=== PATIENT | male | born 1970 | race Caucasian/White ===

== ENCOUNTER → 2017-12-17 | Outpatient (CLI) | payer BC ==
--- NOTE | 2017-12-17 15:33 | XR ---
EXAMINATION TYPE: XR KUB DATE OF EXAM: 12/17/2017 COMPARISON: NONE HISTORY: Pain TECHNIQUE: One view abdominal series FINDINGS: The osseous structures are intact. The bowel gas pattern is nonspecific. Lung bases are clear. There is a 3 mm calcification overlying the lower pole right kidney. Within the pelvis there is a 3 mm calcification overlying the sacrum on the left. Arthropathy of the hips noted. Retained fecal debris throughout the right colon IMPRESSION: 1. Nonspecific abdomen. 2. 3 mm lower pole right renal calculus. 3. There is a left hemipelvic calcification below the SI joint measuring 3 mm which could potentially be in the course of the left ureter, correlate clinically.
== END | disposition home or self-care (01) ==
LOC: RADXRMAIN 14:36
PROVIDERS: ATTEND Urology
DX: N20.0 Calculus of kidney (principal)
CPT/HCPCS: 74018

== ENCOUNTER → 2017-12-26 | Outpatient (CLI) | payer BC ==
--- NOTE | 2017-12-27 09:37 | XR ---
EXAMINATION TYPE: XR KUB DATE OF EXAM: 12/26/2017 COMPARISON: 12/17/2017 HISTORY: Pain TECHNIQUE: One view abdominal series FINDINGS: Right kidney: There is a tiny 2 mm calcification overlying the lower pole the right kidney. Left kidney: No suspicious calcifications. Pelvis: There is a tiny 3 mm calcification in the left lower hemipelvis which appears to migrated sli ghtly from the prior exam and appears to be at the expected location of the UPJ. Bowel gas pattern nonspecific with extensive retained fecal debris. Curvature the spine with hypertro phic changes. IMPRESSION: 1. Suspect a 3 mm left UVJ calcification is migrated a few centimeters from the prior exam. 2. There is a 2 mm lower pole right renal calculus
== END | disposition home or self-care (01) ==
LOC: RADXRMAIN 17:50
PROVIDERS: ATTEND Urology
DX: N20.0 Calculus of kidney (principal)
CPT/HCPCS: 74018

== ENCOUNTER 2019-07-13 04:12 | Emergency (ER) | payer BC ==
[2019-07-13 04:18] VITALS: RESP 18
[2019-07-13] MEDS ORDERED: ONDANSETRON 4 MG/2 ML VIAL IVP STA (04:24)
[2019-07-13] MEDS ORDERED: KETOROLAC 30 MG/ML 1 ML VIAL IVP STA (04:24)
[2019-07-13] MEDS ORDERED: SODIUM CHLORIDE 0.9% 1,000 ML IV STA (04:24)
[2019-07-13 04:47] LABS: Appearance,Urine Clear (Clear); Bilirubin,Urine Negative (Negative); Blood,Urine Small (Negative); Calcium Oxalate Crystals,Urine Rare /hpf; Color,Urine Yellow; Glucose,Urine (UA) Negative (Negative); Ketones,Urine Negative (Negative); Leukocyte Esterase,Urine Trace (Negative); Mucus,Urine Moderate /hpf; Nitrite,Urine Negative (Negative); PH, Urine 5.5 (5.0-8.0); Protein,Urine 1+ (Negative); RBC,Urine 37 /hpf (0-5); Specific Gravity,Urine 1.031 (1.001-1.035); Squamous Epithelial Cell,Urine <1 /hpf (0-4); Urobilinogen,Urine <2.0 mg/dL (<2.0); WBC,Urine 4 /hpf (0-5)
[2019-07-13 04:53] LABS: Basophils % (A) 1 %; Eosinophils # (A) 0.5 k/uL (0-0.7); Eosinophils % (A) 6 %; HCT 38.4 % (39.0-53.0); HGB 12.5 gm/dL (13.0-17.5); Hypochromasia Slight; Lymphocytes # (A) 3.9 k/uL (1.0-4.8); Lymphocytes % (A) 52 %; MCH 27.7 pg (25.0-35.0); MCHC 32.4 g/dL (31.0-37.0); MCV 85.6 fL (80.0-100.0); Mean Platelet Volume 6.2; Monocytes # (A) 0.5 k/uL (0-1.0); Monocytes % (A) 7 %; Neutrophils # (A) 2.4 k/uL (1.3-7.7); Neutrophils % (A) 31 %; Platelet Count 267 k/uL (150-450); RBC 4.49 m/uL (4.30-5.90); RDW 15.3 % (11.5-15.5); WBC 7.6 k/uL (3.8-10.6)
--- NOTE | 2019-07-13 04:57 | XR ---
EXAMINATION TYPE: XR KUB DATE OF EXAM: 07/13/2019 COMPARISON: NONE HISTORY: Flank pain TECHNIQUE: 2 views FINDINGS: There is no sign of intestinal obstruction or pneumoperitoneum. Fecal pattern is normal. Th ere is an amorphous 5 mm calcification over the right mid abdomen that could be renal calculus. Lung bases are clear. IMPRESSION: Nonacute abdomen. Possible right renal calculus.
[2019-07-13 05:01] LABS: Albumin 4.1 g/dL (3.5-5.0); Calcium 9.5 mg/dL (8.4-10.2); Potassium 3.7 mmol/L (3.5-5.1); Total Bilirubin 0.1 mg/dL (0.2-1.3)
--- NOTE | 2019-07-13 05:13 | ED ---
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 Patient reports he has a history of kidney stones last was approximately 2 years ago, he has required cystoscopy in the past. Patient reports he's been having intermittent pain for 2 days now, pain has coming gone in waves and he was concerned he had a kidney stone but thought he would feel to manage it at home. Patient woke suddenly from sleep this morning with severe pain in his right flank with associated nausea and vomiting which prompted him to come the ER for evaluation. Patient denies any associated fevers chills chest pain shortness of breath or change in bowel or bladder habits. He's not noticed any gross hematuria. - Related Data Previous Rx's Medication Instructions Recorded Tamsulosin [Flomax] 0.4 mg PO DAILY #7 cap 07/13/19 Allergies Allergy/AdvReac Type Severity Reaction Status Date / Time No Known Allergies Allergy Verified 07/13/19 04:36 Review of Systems ROS Statement: Those systems with pertinent positive or pertinent negative responses have been documented in the HPI. ROS Other: All systems not noted in ROS Statement are negative. Past Medical History History of Any Multi-Drug Resistant Organisms: None Reported Past Surgical History: Hernia Repair Past Psychological History: No Psychological Hx Reported Smoking Status: Never smoker Past Alcohol Use History: None Reported Past Drug Use History: None Reported General Exam - General Exam Comments Initial Comments: Physical Exam GENERAL: Appears uncomfortable HENT: Normocephalic, Atraumatic. EYES: PERRL, EOMI PULMONARY: Unlabored respirations. No audible rales rhonchi or wheezing was noted. CARDIOVASCULAR: There is a regular rate and rhythm without any murmurs gallops or rubs. ABDOMEN: Soft and nontender with normal bowel sounds. No tenderness to palpation right lower quadrant Tenderness to percussion of the right flank SKIN: Skin is clear with no lesions or rashes and otherwise unremarkable. : Deferred NEUROLOGIC: Patient is alert and oriented x3. Moving all extremities spontaneously MUSCULOSKELETAL: Normal extremities with adequate strength and full range of motion. No lower extremity swelling or edema. No calf tenderness. PSYCHIATRIC: Normal psychiatric evaluation. Limitations: no limitations Course Vital Signs 07/13/19 07/13/19 04:14 05:29 Temperature 98.8 F 98.2 F Pulse Rate 80 87 Respiratory 18 18 Rate Blood Pressure 140/103 108/91 O2 Sat by Pulse 99 98 Oximetry Medical Decision Making - Medical Decision Making The patient was seen and evaluated history was obtained from the patient History and physical exam are consistent with nephrolithiasis Labs are otherwise relatively unremarkable resolution of his pain after Zofran and Toradol Patient was discharged with Tylenol 3, Zofran, and Flomax Return parameters were discussed patient was discharged home in stable condition - Lab Data Result diagrams: 07/13/19 04:32 07/13/19 04:32 Lab Results 07/13/19 07/13/19 07/13/19 Range/Units 04:32 04:32 04:32 WBC 7.6 (3.8-10.6) k/uL RBC 4.49 (4.30-5.90) m/uL Hgb 12.5 L (13.0-17.5) gm/dL Hct 38.4 L (39.0-53.0) % MCV 85.6 (80.0-100.0) fL MCH 27.7 (25.0-35.0) pg MCHC 32.4 (31.0-37.0) g/dL RDW 15.3 (11.5-15.5) % Plt Count 267 (150-450) k/uL Neutrophils % 31 % Lymphocytes % 52 % Monocytes % 7 % Eosinophils % 6 % Basophils % 1 % Neutrophils # 2.4 (1.3-7.7) k/uL Lymphocytes # 3.9 (1.0-4.8) k/uL Monocytes # 0.5 (0-1.0) k/uL Eosinophils # 0.5 (0-0.7) k/uL Basophils # 0.0 (0-0.2) k/uL Hypochromasia Slight Sodium 142 (137-145) mmol/L Potassium 3.7 (3.5-5.1) mmol/L Chloride 105 (98-107) mmol/L Carbon Dioxide 30 (22-30) mmol/L Anion Gap 7 mmol/L BUN 14 (9-20) mg/dL Creatinine 1.15 (0.66-1.25) mg/dL Est GFR (CKD-EPI)AfAm 88 (>60 ml/min/1.73 sqM) Est GFR (CKD-EPI)NonAf 76 (>60 ml/min/1.73 sqM) Glucose 146 H (74-99) mg/dL Calcium 9.5 (8.4-10.2) mg/dL Total Bilirubin 0.1 L (0.2-1.3) mg/dL AST 27 (17-59) U/L ALT 19 L (21-72) U/L Alkaline Phosphatase 79 (38-126) U/L Total Protein 7.0 (6.3-8.2) g/dL Albumin 4.1 (3.5-5.0) g/dL Urine Color Yellow Urine Appearance Clear (Clear) Urine pH 5.5 (5.0-8.0) Ur Specific [place] 1.031 (1.001-1.035) Urine Protein 1+ H (Negative) Urine Glucose (UA) Negative (Negative) Urine Ketones Negative (Negative) Urine Blood Small H (Negative) Urine Nitrite Negative (Negative) Urine Bilirubin Negative (Negative) Urine Urobilinogen <2.0 (<2.0) mg/dL Ur Leukocyte Esterase Trace H (Negative) Urine RBC 37 H (0-5) /hpf Urine WBC 4 (0-5) /hpf Ur Squamous Epith Cells <1 (0-4) /hpf Calcium Oxalate Crystal Rare H (None) /hpf Urine Mucus Moderate H (None) /hpf Disposition Clinical Impression: Flank pain Disposition: HOME SELF-CARE Condition: Stable Instructions (If sedation given, give patient instructions): Kidney Stones (ED) Additional Instructions: Follow up with your primary doctor within 2-3 days. Follow up with a Urologist this week (we will give you a list of urologists, but make sure they accept your insurance). ?Please call as soon as possible for an appointment. 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 Use Motrin (also called Ibuprofen or Advil) 400-800 mg every 6 hours as needed for pain. Take this with food, if you have any stomach discomfort while taking Motrin, you can use TUMS to help. Drink plenty of fluids, avoid caffeine & alcohol. Please continue taking your home medications as directed. Do not use alcohol when taking any medication (especially antibiotics, tylenol or other pain medication) unless you check with the doctor or pharmacist. Any worsening pain, fever, chills, difficulty urinating, or any other concerns, please see your doctor immediately or return to Emergency Department right away. Prescriptions: Tamsulosin [Flomax] 0.4 mg PO DAILY #7 cap Is patient prescribed a controlled substance at d/c from ED?: No Referrals: Harvey Burnham MD [Primary Care Provider] - 1-2 days
[2019-07-13] MEDS ORDERED: ACET/COD 300 MG/30 MG STARTER PACK 6 TAB BTL PO STA (05:15)
[2019-07-13] MEDS ORDERED: ONDANSETRON 4 MG ODT STARTER PACK 2 TAB BTL PO STA (05:15)
[2019-07-13 05:30] VITALS: BP 108/91; PULSE 87; TEMP 98.2
== END 2019-07-13 05:30 | disposition home or self-care (01) ==
LOC: EC 04:12
DX: R10.9 Unspecified abdominal pain (principal); R11.2 Nausea with vomiting, unspecified; Z87.442 Personal history of urinary calculi
CPT/HCPCS: 36415; 80053; 85025; 81001; 74018; 99284; 96374; 96375; 96361; J2405; J1885; S0119

== ENCOUNTER → 2019-08-11 | Outpatient (CLI) | payer BC ==
--- NOTE | 2019-08-12 08:09 | XR ---
EXAMINATION TYPE: XR KUB DATE OF EXAM: 08/11/2019 COMPARISON: 07/13/2019 HISTORY: Follow-up ureteral stone TECHNIQUE: One view abdominal series FINDINGS: The osseous structures are intact. The bowel gas pattern is nonspecific. Hypertrophic change of the vertebral column and acetabulum. Correlate for femoral acetabular impingement. Curvature the spine correlate for scoliosis. There is a 3 mm calcification just inferior to the right transverse process of L2. This is similar in appearance to prior exam.. IMPRESSION: 1. Nonspecific abdomen. Suspect a stable appearing proximal right ureteral calculus measuring 3 mm j ust inferior to the right transverse process of L2. Additionally, overlying the upper margin of the r ight sacrum there is a 3 mm calcification which could represent distal migration of the suspected sec ond ureteral calculus.
== END | disposition home or self-care (01) ==
LOC: RADXRMAIN 16:28
PROVIDERS: ATTEND Urology
DX: N20.1 Calculus of ureter (principal)
CPT/HCPCS: 74018

== ENCOUNTER → 2019-09-01 | Outpatient (CLI) | payer BC ==
--- NOTE | 2019-09-01 20:11 | XR ---
KUB HISTORY: Postop, right-sided kidney stones Frontal KUB submitted on 2 images and correlated prior exam 08/11/2019 Lung bases are clear. No evident bowel obstruction or pneumoperitoneum. No pathologic calcification e vident. Spinal curvature again seen. There are degenerative disc changes. IMPRESSION: No acute abnormalities evident
== END | disposition home or self-care (01) ==
LOC: RADXRMAIN 17:27
PROVIDERS: ATTEND Urology
DX: N20.1 Calculus of ureter (principal)
CPT/HCPCS: 74018

== ENCOUNTER 2020-09-19 08:52 | Day surgery (SDC) | payer BC ==
[2020-09-12 15:06] VITALS: BMI 25.2
[~2020-09-19 08:52] MED LIST: LACTATED RINGERS 1,000 ML IV SCH
[2020-09-19 09:07] VITALS: TEMP 98.1
[2020-09-19] MEDS ORDERED: LACTATED RINGERS 1,000 ML IV ONE (09:07)
[2020-09-19] MEDS ORDERED: PROPOFOL 10 MG/ML 20 ML VIAL IV ONE (09:34)
[2020-09-19] MEDS ORDERED: KETAMINE 10 MG/ML 20 ML VIAL ONE (09:34)
--- NOTE | 2020-09-19 10:01 | P.PCN ---
Date of Procedure: 09/19/20 Description of Procedure: BRIEF HISTORY: Patient is a 50-year-old male presenting for outpatient colonoscopy for evaluation of change in bowel habits. He does report a family history of colon cancer in his mother at the age of 45. No prior colonoscopy. PROCEDURE PERFORMED: Colonoscopy. PREOPERATIVE DIAGNOSIS: Change in bowel habits, no prior colonoscopy, family history of colon cancer in his mother at 55. ESTIMATED BLOOD LOSS: Minimal. IV sedation per Anesthesia. PROCEDURE: After informed consent was obtained, the patient, was brought into the endoscopy unit. IV sedation was administered by Anesthesia under continuous monitoring. Digital rectal examination was normal. Initially the Olympus CF-190 flexible video colonoscope was then inserted in the rectum, gradually advanced into the cecum without any difficulty. Careful examination was performed as the scope was gradually being withdrawn. Ileocecal valve and the appendiceal orifice were visualized and appeared normal. Prep was excellent. Mucosa of the cecum, ascending colon, transverse colon, descending colon, sigmoid colon, and rectum appeared normal, with a few scattered diverticula noted in the sigmoid colon. Retroflexion was performed in the rectum and no lesions were seen, low-grade internal hemorrhoids. The patient tolerated the procedure well. IMPRESSION: Mild sigmoid diverticulosis. Normal-appearing colon from rectum to cecum and normal-appearing terminal ileum. RECOMMENDATIONS: Findings of this examination were discussed with the patient. Okay to resume diet. Okay to resume medications. Recommendation is for repeat colonoscopy in 5 years for family history of colon cancer.
[2020-09-19 10:39] VITALS: RESP 18
[2020-09-19 10:54] VITALS: BP 129/81; PULSE 73
== END 2020-09-19 11:14 | disposition home or self-care (01) ==
LOC: ORWHC2ENDO 08:52
PROVIDERS: ATTEND Internal Medicine
DX: K57.30 Diverticulosis of large intestine without perforation or abscess without bleeding (principal); R19.4 Change in bowel habit; Z80.0 Family history of malignant neoplasm of digestive organs; Z87.442 Personal history of urinary calculi; K21.9 Gastro-esophageal reflux disease without esophagitis; Z79.899 Other long term (current) drug therapy; Z98.890 Other specified postprocedural states
CPT/HCPCS: 45378; J2704

== ENCOUNTER → 2020-11-09 | Outpatient (CLI) | payer BC ==
--- NOTE | 2020-11-09 16:26 | XR ---
EXAMINATION TYPE: XR cervical spine comp DATE OF EXAM: 11/09/2020 COMPARISON: None HISTORY: Chronic neck pain TECHNIQUE: Five-view cervical spine FINDINGS: Prevertebral space is normal. Anterior vertebral body spurring is present C5-C7. There is n arrowing of disc height throughout the cervical spine. Facet degenerative changes are present. There is foraminal stenosis C4-5 which appears moderate to severe on the right with milder foraminal narrow ing throughout the remaining right foramen. There is some foraminal narrowing present due to endplate spurring at C5-6 on the left. Odontoid is limited with overlying occiput. IMPRESSION: 1. Degenerative disc changes through the cervical spine. 2. Foraminal stenosis greater on the right. Greatest effect is likely present at C4-5, correlate with radicular symptoms.
--- NOTE | 2020-11-09 16:30 | XR ---
EXAMINATION TYPE: XR KUB DATE OF EXAM: 11/09/2020 COMPARISON: 09/01/2019 INDICATION: Flank pain x6 days TECHNIQUE: Single view abdomen upright view FINDINGS: There is a normal bowel gas pattern. Psoas margins are normal. No organomegaly is present. Scoliosis is present with the convexity to the left. No suspicious renal or ureteral stones are identified. IMPRESSION: 1. Unremarkable Abdomen
== END | disposition home or self-care (01) ==
LOC: RADXRMAIN 15:52
PROVIDERS: ATTEND Urology
DX: M48.02 Spinal stenosis, cervical region (principal); M47.812 Spondylosis without myelopathy or radiculopathy, cervical region; N20.1 Calculus of ureter
CPT/HCPCS: 72050; 74018

== ENCOUNTER → 2021-06-14 | Outpatient (CLI) | payer BC ==
--- NOTE | 2021-06-14 21:34 | CT ---
EXAMINATION TYPE: CT abdomen pelvis wo con DATE OF EXAM: 06/14/2021 COMPARISON: None HISTORY: Generalized abdominal pain. Hematuria. CT DLP: 772 mGycm Automated exposure control for dose reduction was used. TECHNIQUE: Helical acquisition of images was performed from the lung bases through the pelvis. FINDINGS: LUNG BASES: No significant abnormality is appreciated. LIVER/GB: No significant abnormality is appreciated. PANCREAS: No significant abnormality is seen. SPLEEN: No significant abnormality is seen. ADRENALS: No significant abnormality is seen. KIDNEYS: Tiny, 2 mm, nonobstructing renal stones bilaterally, one in each kidney. Extrarenal pelvis o n the left. No significant perinephric fat stranding. FREE AIR: No free air is visualized RETROPERITONEAL ADENOPATHY: None visualized REPRODUCTIVE ORGANS: No significant abnormality is seen URINARY BLADDER: Bladder is underdistended limiting assessment. There is a 9 mm stone in the prostati c urethra. PELVIC ADENOPATHY: None visualized. OSSEOUS STRUCTURES: No significant abnormality is seen. BOWEL: Large hiatal hernia. Nondilated loops of large and small bowel. No intraperitoneal air. The a ppendix is unremarkable OTHER: Small fat-containing umbilical hernia.12 IMPRESSION: 1. There is a 9 mm stone in the distal prostatic/membranous urethra. 2. Small bilateral nonobstructing renal stones.
== END | disposition home or self-care (01) ==
LOC: RADCTMAIN 17:14
PROVIDERS: ATTEND Internal Medicine
DX: N20.0 Calculus of kidney (principal); N21.1 Calculus in urethra
CPT/HCPCS: 74176

== ENCOUNTER → 2023-01-17 | Outpatient (CLI) | payer BC ==
--- NOTE | 2023-01-17 10:01 | CT ---
EXAMINATION TYPE: CT angio chest DATE OF EXAM: 01/17/2023 COMPARISON: None HISTORY: Several incidents of syncope CT DLP: 345.90 mGycm CONTRAST: CT chest with contrast and 3D reconstruction with MIP imaging is performed with IV Contrast, patient injected with 100 mL of Isovue 370. Contrast-enhanced CT of the chest was performed through the course of the pulmonary arteries with zoltan g and mediastinal window settings submitted. 3D reconstruction with MIP imaging was also performed. PULMONARY ARTERIES: The pulmonary arteries and their major tributaries are patent. I do not see andria dence for sizable filling defect to suggest pulmonary embolic process. LUNGS: The lungs are clear and free of infiltrate. No evidence for atelectasis. No pulmonary nodule or mass is detected. No pleural effusion. MEDIASTINUM: Thoracic aorta is of normal caliber. Moderate fixed hiatal hernia.. The heart is not en larged. No evidence for mediastinal mass. No mediastinal lymph nodes greater than 1cm. HILAR STRUCTURES: No evidence for mass. No hilar lymph nodes greater than 1 cm. UPPER ABDOMEN: No significant abnormality is seen. IMPRESSION: 1. No evidence for Pulmonary embolism at this time.
== END | disposition home or self-care (01) ==
LOC: RADCTMAIN 08:46
PROVIDERS: ATTEND Family Medicine
DX: R55 Syncope and collapse (principal); R11.10 Vomiting, unspecified; R10.9 Unspecified abdominal pain
CPT/HCPCS: 71275; Q9967

== ENCOUNTER 2023-05-21 10:12 | Day surgery (SDC) | payer BC ==
[2023-05-21 10:55] VITALS: TEMP 97.9
[2023-05-21] MEDS ORDERED: LACTATED RINGERS 1,000 ML IV ONE (11:07)
[2023-05-21] MEDS ORDERED: PROPOFOL 10 MG/ML 20 ML VIAL IV ONE (12:09)
[2023-05-21] MEDS ORDERED: LIDOCAINE 2% INJ 20 MG/ML (2 ML VIAL) ONE (12:09)
--- NOTE | 2023-05-21 12:17 | P.PCN ---
Date of Procedure: 05/21/23 Procedure(s) Performed: BRIEF HISTORY: Patient is a 53-year-old, pleasant, white male scheduled for an upper endoscopy as a part of evaluation of long-standing history of GERD. He complains passive regurgitation and intermittent nausea vomiting usually in the evening. He is on omeprazole 20 mg daily for 2 years with some help. PROCEDURE PERFORMED: Esophagogastroduodenoscopy with biopsy. PREOPERATIVE DIAGNOSIS: GERD/passive regurgitation. IV sedation per anesthesia. PROCEDURE: After informed consent was obtained, the patient was brought into the endoscopy unit. IV sedation was administered by Anesthesia under continuous monitoring. Initially the Olympus GIF-140 video endoscope was inserted into the mouth. Esophagus intubated without any difficulty. It was gradually advanced into the stomach and duodenum and carefully examined. The bulb and the second part of the duodenum appeared normal. The scope at this time was withdrawn to the stomach, adequately insufflated with air, and upon careful examination, mucosa of the antrum, had mild gastritis and biopsies were done from this area. Mucosa of the body, cardia and the fundus appeared normal. The scope was then withdrawn into the esophagus. Moderate size hiatal hernia noted. The GE junction was located at 36 cm from the incisors. There were linear erosions and ulcerations noted in the distal esophagus consistent with LA grade C reflux esophagitis. Rest of esophagus appeared normal and the patient tolerated the procedure well. IMPRESSION: 1. Linear ulcerations and erosions in the distal esophagus consistent with LA grade C reflux esophagitis. 2. Moderate hiatal hernia 3. Mild antral gastritis. RECOMMENDATIONS: The findings of this examination were discussed with the patient as well as his family. He was advised to increase the stomach taken half hour before breakfast and dinnertime and follow antireflux measures polyp in the office in 3 months..
[2023-05-21] MEDS ORDERED: LACTATED RINGERS 1,000 ML IV SCH (12:34)
[2023-05-21] MEDS ORDERED: LIDOCAINE 1% (10MG/ML) FOR IV START INTRADERMA PRN (12:34)
[2023-05-21 13:28] VITALS: BP 123/75; PULSE 88; RESP 18
== END 2023-05-21 13:09 | disposition home or self-care (01) ==
LOC: ORWHC2ENDO 10:12
PROVIDERS: ATTEND Internal Medicine Gastroenterology
DX: K29.50 Unspecified chronic gastritis without bleeding (principal); K21.00 Gastro-esophageal reflux disease with esophagitis, without bleeding; K44.9 Diaphragmatic hernia without obstruction or gangrene; Z79.899 Other long term (current) drug therapy
CPT/HCPCS: 43239; J2704; J2001; 88305

== ENCOUNTER 2025-04-06 02:59 | Emergency (ER) | payer BC ==
--- NOTE | 2025-04-06 03:16 | ED ---
General Adult HPI - General Source: patient, RN notes reviewed Mode of arrival: ambulatory Limitations: no limitations - History of Present Illness Onset/Timin -: hour(s) Location: right Radiation: flank Severity scale (1-10): 10 Consistency: constant Associated Symptoms: denies other symptoms Treatments Prior to Arrival: none <Luis Carlos Demarco - Last Filed: 04/06/25 03:47> - General Source: patient, RN notes reviewed, old records reviewed Mode of arrival: ambulatory Limitations: no limitations - History of Present Illness Consistency: constant Worsens with: none Associated Symptoms: denies other symptoms <Nik Marsh - Last Filed: 04/06/25 06:04> - General Chief complaint: Back Pain/Injury Stated complaint: Back pain Time Seen by Provider: 04/06/25 03:10 - History of Present Illness Initial comments: This is a 54-year-old male with history including kidney stone, lower back arthritis and GERD presenting for right back/flank pain (10/10) x 3 hours. Patient states pain was sudden without recent fall or trauma. Patient states pain starts in the back, wraps around right flank to groin. Patient states it feels like a kidney stone. Denies worsened pain with movement, dysuria, hematuria, oliguria, or urethral discharge. Denies fever, chills, chest pain, dyspnea, N/V/D. (Luis Carlos Demarco) This is a 54-year-old kidney stone history of kidney stone severe pain here in the ER kidney stone type pain (Nik Marsh) - Related Data Home Medications Medication Instructions Recorded Confirmed Calcium Carbonate [Tums] 500 mg PO QID PRN 09/12/20 05/21/23 Children's Multivitamin 1 tab PO DAILY 09/12/20 05/21/23 Ground Beef Liver Pill 1 dose PO DAILY 09/12/20 05/21/23 Mushroom Supplement 1 dose PO DAILY 09/12/20 05/21/23 Pantoprazole [Protonix] 40 mg PO DAILY 09/12/20 05/21/23 Vitamin C Gummies 1 tab PO DAILY 09/12/20 05/21/23 Acetaminophen [Tylenol] 650 mg PO BID 02/06/23 05/21/23 Ibuprofen [Motrin Ib] 400 mg PO Q8H 02/06/23 05/21/23 Allergies Allergy/AdvReac Type Severity Reaction Status Date / Time No Known Allergies Allergy Verified 04/06/25 03:02 Review of Systems ROS Other: All systems not noted in ROS Statement are negative. <Luis Carlos Demarco - Last Filed: 04/06/25 03:47> ROS Other: All systems not noted in ROS Statement are negative. <Nik Marsh - Last Filed: 04/06/25 06:04> ROS Statement: Those systems with pertinent positive or pertinent negative responses have been documented in the HPI. Past Medical History Past Medical History: GERD/Reflux Additional Past Medical History / Comment(s): Hx kidney stones. "Crippling Arthritis lower back". History of Any Multi-Drug Resistant Organisms: None Reported Past Surgical History: Hernia Repair Past Anesthesia/Blood Transfusion Reactions: No Reported Reaction Past Psychological History: No Psychological Hx Reported Smoking Status: Never smoker Past Alcohol Use History: Rare Past Drug Use History: None Reported - Past Family History Mother Family Medical History: Cancer Father Family Medical History: Cancer <Luis Carlos Demarco - Last Filed: 04/06/25 03:47> General Exam Limitations: no limitations General appearance: alert, in distress Head exam: Present: atraumatic, normocephalic, normal inspection Eye exam: Present: normal appearance, PERRL, EOMI. Absent: scleral icterus, conjunctival injection, periorbital swelling ENT exam: Present: normal exam, mucous membranes moist Neck exam: Present: normal inspection. Absent: tenderness, meningismus, lymphadenopathy Respiratory exam: Present: normal lung sounds bilaterally. Absent: respiratory distress, wheezes, rales, rhonchi, stridor Cardiovascular Exam: Present: regular rate, normal rhythm, normal heart sounds. Absent: systolic murmur, diastolic murmur, rubs, gallop, clicks GI/Abdominal exam: Present: soft, tenderness (Positive right abdominal TTP with out guarding), normal bowel sounds. Absent: distended, guarding, rebound, rigid Extremities exam: Present: normal inspection, full ROM, normal capillary refill. Absent: tenderness, pedal edema, joint swelling, calf tenderness Back exam: Present: normal inspection. Absent: tenderness, CVA tenderness (R), CVA tenderness (L), paraspinal tenderness Neurological exam: Present: alert, oriented X3, CN II-XII intact Psychiatric exam: Present: normal affect, normal mood Skin exam: Present: warm, dry, intact, normal color. Absent: rash <Luis Carlos Demarco - Last Filed: 04/06/25 03:47> General appearance: alert, in no apparent distress Head exam: Present: atraumatic, normocephalic, normal inspection Eye exam: Present: normal appearance, PERRL, EOMI. Absent: scleral icterus, conjunctival injection, periorbital swelling ENT exam: Present: normal exam, mucous membranes moist Neck exam: Present: normal inspection. Absent: tenderness, meningismus, lymphadenopathy Respiratory exam: Present: normal lung sounds bilaterally. Absent: respiratory distress, wheezes, rales, rhonchi, stridor Cardiovascular Exam: Present: regular rate, normal rhythm, normal heart sounds. Absent: systolic murmur, diastolic murmur, rubs, gallop, clicks GI/Abdominal exam: Present: soft, normal bowel sounds. Absent: distended, tenderness, guarding, rebound, rigid Extremities exam: Present: normal inspection, full ROM, normal capillary refill. Absent: tenderness, pedal edema, joint swelling, calf tenderness Back exam: Present: normal inspection Neurological exam: Present: alert, oriented X3, CN II-XII intact Psychiatric exam: Present: normal affect, normal mood Skin exam: Present: warm, dry, intact, normal color. Absent: rash <Nik Marsh - Last Filed: 04/06/25 06:04> Course <Nik Marsh - Last Filed: 04/06/25 06:04> Vital Signs 04/06/25 03:00 Temperature 97.4 F L Pulse Rate 74 Respiratory 18 Rate Blood Pressure 160/96 O2 Sat by Pulse 98 Oximetry - Reevaluation(s) Reevaluation #1: 04/06/25 06:03 Medical records reviewed (Nik Marsh) Reevaluation #2: 04/06/25 06:04 Patient's pain is improved (Nik Marsh) Reevaluation #3: 04/06/25 06:04 Patient informed of results questions answered (Nik Marsh) Medical Decision Making - Lab Data Result diagrams: 04/06/25 03:30 <Luis Carlos Demarco - Last Filed: 04/06/25 03:47> - Lab Data Result diagrams: 04/06/25 03:30 04/06/25 03:30 - Radiology Data Radiology results: report reviewed (CT abdomen pelvis positive for kidney st one), image reviewed <Nik Marsh - Last Filed: 04/06/25 06:04> - Medical Decision Making Was pt. sent in by a medical professional or institution (, PA, FLATBED OWNER OPERATOR, urgent care, hospital, or long-term...) When possible be specific @ -No Did you speak to anyone other than the patient for history (EMS, parent, family, police, friend...)? What history was obtained from this source @ -No Did you review nursing and triage notes (agree or disagree)? Why? @ -I reviewed and agree with nursing and triage notes Were old charts reviewed (outside hosp., previous admission, EMS record, old EKG, old radiological studies, urgent care reports/EKG's, long-term records)? Report findings @ -No old charts were reviewed Differential Diagnosis (chest pain, altered mental status, abdominal pain women, abdominal pain men, vaginal bleeding, weakness, fever, dyspnea, syncope, headache, dizziness, GI bleed, back pain, seizure, CVA, palpatations, mental health, musculoskeletal)? @ -Differential Back Pain: Strain, zoster, cauda equina syndrome, epidural abscess, vertebral osteomyelitis, discitis, fracture, subluxation, disc herniation, DJD, spinal stenosis, dissection, AAA, pancreatitis, peptic ulcer disease, pyelonephritis, kidney stone, this is not meant to be an all-inclusive list. EKG interpreted by me (3pts min.). @ -Not done X-rays interpreted by me (1pt min.). @ -None done CT interpreted by me (1pt min.). @ -AP CT results pending U/S interpreted by me (1pt. min.). @ -None done What testing was considered but not performed or refused? (CT, X-rays, U/S, labs)? Why? @ -None What meds were considered but not given or refused? Why? @ -None Did you discuss the management of the patient with other professionals (professionals i.e. , PA, FLATBED OWNER OPERATOR, lab, RT, psych nurse, social worker masters, finishing frame runner, teacher, corporate responsibility officer, case manager specialist)? Give summary @ -No Was smoking cessation discussed for >3mins.? @ -No Was critical care preformed (if so, how long)? @ -No Were there social determinants of health that impacted care today? How? (Homel essness, low income, unemployed, alcoholism, drug addiction, transportation, low edu. Level, literacy, decrease access to med. care, fpc, rehab)? @ -No Was there de-escalation of care discussed even if they declined (Discuss DNR or withdrawal of care, Hospice)? DNR status @ -No What co-morbidities impacted this encounter? (DM, HTN, Smoking, COPD, CAD, Cancer, CVA, ARF, Chemo, Hep., AIDS, mental health diagnosis, sleep apnea, morbid obesity)? @ -None Was patient admitted / discharged? Hospital course, mention meds given and route, prescriptions, significant lab abnormalities, going to OR and other pertinent info. @ -Patient initially provided IV normal saline, Dilaudid and Toradol. Lab work and AP CT results pending. Patient discussed in care passed to Dr. Marsh. Undiagnosed new problem with uncertain prognosis? @ -No Drug Therapy requiring intensive monitoring for toxicity (Heparin, Nitro, Insulin, Cardizem)? @ -No Were any procedures done? @ -No Diagnosis/symptom? @ -Default Acute, or Chronic, or Acute on Chronic? @ -Acute Uncomplicated (without systemic symptoms) or Complicated (systemic symptoms)? @ -Uncomplicated Side effects of treatment? @ -No Exacerbation, Progression, or Severe Exacerbation? @ -No Poses a threat to life or bodily function? How? (Chest pain, [place], [place], pneumonia, PE, COPD, DKA, ARF, appy, cholecystitis, CVA, Diverticulitis, Homicidal, Suicidal, threat to staff... and all critical care pts) @ -No (Luis Carlos Demarco) 54 male to ER with left shoulder pain positive. Still here in the ER pain is improved patient can be discharged home (Nik Marsh) - Lab Data Lab Results 04/06/25 04/06/25 Range/Units 03:30 03:30 WBC 8.19 (4.50-10.00) 10*3/uL RBC 4.46 (4.40-5.60) 10*6/uL Hgb 11.4 L (13.0-17.0) g/dL Hct 36.1 L (39.6-50.0) % MCV 80.9 (80.0-97.0) fL MCH 25.6 L (27.0-32.0) pg MCHC 31.6 L (32.0-37.0) g/dL Plt Count 267 (140-440) 10*3/uL MPV 9.6 (9.5-12.2) fL Immature Gran % (Auto) 0.2 % Neutrophils % 40.5 % Lymphocytes % 43.8 % Monocytes % 9.2 % Eosinophils % 5.4 % Basophils % 0.9 % Immature Gran # 0.02 (0.00-0.04) 10*3/uL Neutrophils # 3.32 (1.80-7.70) 10*3/uL Lymphocytes # 3.59 (0.90-5.00) 10*3/uL Monocytes # 0.75 (0.20-1.00) 10*3/uL Eosinophils # 0.44 H (0.04-0.35) 10*3/uL Basophils # 0.07 (0.00-0.10) 10*3/uL Sodium 142 (137-145) mmol/L Potassium 3.6 (3.5-5.1) mmol/L Chloride 103 (98-107) mmol/L Carbon Dioxide 26 (22-30) mmol/L Anion Gap 13 mmol/L BUN 25 H (9-20) mg/dL Creatinine 1.51 H (0.66-1.25) mg/dL Est GFR (CKD-EPI)AfAm 61 (>60 ml/min/1.73 sqM) Est GFR (CKD-EPI)NonAf 53 (>60 ml/min/1.73 sqM) Glucose 127 H (74-99) mg/dL Calcium 9.8 (8.4-10.2) mg/dL Total Bilirubin 0.4 (0.2-1.3) mg/dL AST 32 (17-59) U/L ALT 25 (4-49) U/L Alkaline Phosphatase 78 (38-126) U/L Total Protein 7.8 (6.3-8.2) g/dL Albumin 4.7 (3.5-5.0) g/dL Disposition <Luis Carlos Demarco - Last Filed: 04/06/25 03:47> Time of Disposition: 06:00 <Nik Marsh - Last Filed: 04/06/25 06:04> Clinical Impression: Kidney stone Disposition: HOME SELF-CARE Condition: Good Instructions (If sedation given, give patient instructions): Kidney Stones (ED) Referrals: Kristy Segura DO [Primary Care Provider] - 1-2 days Orlando Leija MD [STAFF PHYSICIAN] - 1-2 days
[2025-04-06] MEDS: HYDROmorphone 1 MG/ML 1 ML SYRINGE IVP STA ×2 (03:27→04:20)
[2025-04-06] MEDS: KETOROLAC 15 MG/ML 1 ML VIAL IVP STA ×2 (03:28→06:13)
[2025-04-06] MEDS: SODIUM CHLORIDE 0.9% 1,000 ML IV STA (03:28)
[2025-04-06 03:42] LABS: Basophils # (A) 0.07 10*3/uL (0.00-0.10); Basophils % (A) 0.9 %; Eosinophils # (A) 0.44 10*3/uL (0.04-0.35); Eosinophils % (A) 5.4 %; HCT 36.1 % (39.6-50.0); HGB 11.4 g/dL (13.0-17.0); Lymphocytes # (A) 3.59 10*3/uL (0.90-5.00); Lymphocytes % (A) 43.8 %; MCH 25.6 pg (27.0-32.0); MCHC 31.6 g/dL (32.0-37.0); MCV 80.9 fL (80.0-97.0); Monocytes # (A) 0.75 10*3/uL (0.20-1.00); Monocytes % (A) 9.2 %; Neutrophils # (A) 3.32 10*3/uL (1.80-7.70); Neutrophils % (A) 40.5 %; Platelet Count 267 10*3/uL (140-440); RBC 4.46 10*6/uL (4.40-5.60); RDW 14.0 % (11.5-14.5); WBC 8.19 10*3/uL (4.50-10.00)
[2025-04-06 03:59] LABS: ALT 25 U/L (4-49); AST 32 U/L (17-59); African American GFR (CKD) 61 (>60 ml/min/1.73 sqM); Albumin 4.7 g/dL (3.5-5.0); Alkaline Phosphatase 78 U/L (38-126); Anion Gap 13 mmol/L; Blood Urea Nitrogen 25 mg/dL (9-20); Calcium 9.8 mg/dL (8.4-10.2); Carbon Dioxide 26 mmol/L (22-30); Chloride 103 mmol/L (98-107); Glucose 127 mg/dL (74-99); Non-African American GFR(CKD) 53 (>60 ml/min/1.73 sqM); Potassium 3.6 mmol/L (3.5-5.1); Sodium 142 mmol/L (137-145); Total Protein 7.8 g/dL (6.3-8.2)
--- NOTE | 2025-04-06 04:16 | CT ---
EXAM: CT Abdomen and Pelvis Without Intravenous Contrast CLINICAL HISTORY: Right flank pain, history of kidney stone TECHNIQUE: Axial computed tomography images of the abdomen and pelvis without intravenous contrast. CTDI is 10.5 mGy and DLP is 684.2 mGy-cm. This CT exam was performed using one or more of the following dose reduction techniques: automated exposure control, adjustment of the mA and/or kV according to patient size, and/or use of iterative reconstruction technique. COMPARISON: Noncontrast CT abdomen and pelvis dated 03/14/2021 FINDINGS: Lung bases: Unremarkable. No mass. No consolidation. Mediastinum: A hiatal hernia is noted containing the fundus of the stomach. There is moderate fluid distention of the stomach. No gastric mucosal thickening. ABDOMEN: Liver: Unremarkable. Gallbladder and bile ducts: Unremarkable. No calcified stones. No ductal dilation. Pancreas: Unremarkable. No ductal dilation. Spleen: Unremarkable. No splenomegaly. Adrenals: Unremarkable. No mass. Kidneys and ureters: 3.7 mm mid to distal right ureteral stone with proximal mild right hydroureteronephrosis and right perinephric fat stranding. Additional subcentimeter nonobstructive nephrolithiasis noted bilaterally. No left-sided hydronephrosis. Similar presumed parapelvic renal cyst measuring 3.2 cm in diameter from 2.9 cm previously. Stomach and bowel: No evidence for bowel obstruction. Evaluation of the bowel mucosa is slightly limited without contrast; however, no definite focal asymmetry suggested. Scattered diverticulosis. Minimal stool burden. No definitive diverticulitis. PELVIS: Appendix: No findings to suggest acute appendicitis. Bladder: Unremarkable. No stones. Reproductive: Unremarkable as visualized. ABDOMEN and PELVIS: Intraperitoneal space: Unremarkable. No free air. No significant fluid collection. Bones/joints: Multilevel degenerative changes throughout the lumbar spine. Similar grade 1 anterolisthesis of L5 on S1 secondary to bilateral L5 spondylolysis. No acute fracture. No dislocation. Soft tissues: Unremarkable. Vasculature: Unremarkable. No abdominal aortic aneurysm. Lymph nodes: Unremarkable. No enlarged lymph nodes. IMPRESSION: 3.7 mm mid to distal right ureteral stone with proximal mild right hydroureteronephrosis and right perinephric fat stranding.
[2025-04-06] MEDS: diphenhydrAMINE 50 MG/ML 1 ML VIAL IVP STA (04:20)
[2025-04-06] MEDS: TAMSULOSIN 0.4 MG CAP.ER.24H PO STA (05:01)
[2025-04-06] MEDS: SODIUM CHLORIDE 0.9% 1,000 ML IV ONE (05:02)
[2025-04-06] MEDS: ACET/COD 300 MG/30 MG STARTER PACK 6 TAB BTL PO STA (06:07)
[2025-04-06] MEDS: ONDANSETRON 4 MG ODT STARTER PACK 2 TAB BTL PO STA (06:07)
[2025-04-06 06:20] VITALS: BP 134/87; PULSE 63; RESP 16; TEMP 97.5
[2025-04-06 06:49] LABS: Bilirubin,Urine Negative (Negative); Blood,Urine Large (Negative); Color,Urine Colorless; Glucose,Urine (UA) Negative (Negative); Ketones,Urine 1+ (Negative); Leukocyte Esterase,Urine Small (Negative); Mucus,Urine Few /hpf; Nitrite,Urine Negative (Negative); PH, Urine 6.0 (5.0-8.0); Protein,Urine Negative (Negative); RBC,Urine >182 /hpf (0-5); Specific Gravity,Urine 1.019 (1.001-1.035); Squamous Epithelial Cell,Urine <1 /hpf (0-4); Urobilinogen,Urine <2.0 mg/dL (<2.0); WBC,Urine 7 /hpf (0-5)
== END 2025-04-06 06:13 | disposition home or self-care (01) ==
LOC: EC 02:59
DX: N13.2 Hydronephrosis with renal and ureteral calculous obstruction (principal)
CPT/HCPCS: 36415; 80053; 85025; 81001; 74176; 99284; 96374; 96375; 96376; 96361; J1200; J1171; J1885; S0119